=== PATIENT | male | born 1970 | race Caucasian/White ===

== ENCOUNTER 2016-12-16 08:16 | Emergency (ER) | payer OTHER, SELFPAY ==
[2016-12-16 08:17] VITALS: BMI 24.5
[2016-12-16 08:23] VITALS: BP 112/78; PULSE 81; RESP 18; TEMP 98.2; O2SAT 96
[2016-12-16] MEDS ORDERED: guaiFENesin 100 mg/5 ml Syrup UD PO STA (08:35)
--- NOTE | 2016-12-16 08:36 | C.PDOC ---
History Of Present Illness 46 y/o male presents to the ED complaining of non-productive cough, sore throat , and body aches x 3 days. Patient reports taking DayQuil and NyQuil at home. Denies any fever, chills, ear pain, chest pain, shortness of breath, or other complaints. Time Seen by Provider: 12/16/16 08:31 Chief Complaint (Nursing): Flu-like Symptoms History Per: Patient History/Exam Limitations: no limitations Onset/Duration Of Symptoms: Days (3), Gradual, Persistent Current Symptoms Are (Timing): Still Present Location Of Pain: Throat, Diffuse Myalgias Sick Contacts (Context): None Associated Symptoms: Cough Ear Symptoms: Bilateral: None Recent travel outside of the [place]: No Past Medical History Reviewed: Historical Data, Nursing Documentation, Vital Signs Vital Signs: Last Vital Signs Temp 98.2 F 12/16/16 08:20 Pulse 81 12/16/16 08:20 Resp 18 12/16/16 08:20 BP 112/78 12/16/16 08:20 Pulse Ox 96 12/16/16 08:36 - Medical History PMH: No Chronic Diseases Surgical History: No Surg Hx Family History: States: Unknown Family Hx - Social History Hx Tobacco Use: No Hx Alcohol Use: No Hx Substance Use: No - Immunization History Hx Tetanus Toxoid Vaccination: No Hx Influenza Vaccination: No Hx Pneumococcal Vaccination: No Review Of Systems Except As Marked, All Systems Reviewed And Found Negative. Constitutional: Positive for: Other (body aches). Negative for: Fever, Chills ENT: Positive for: Throat Pain. Negative for: Ear Pain Cardiovascular: Negative for: Chest Pain Respiratory: Positive for: Cough. Negative for: Shortness of Breath, Sputum Physical Exam - Physical Exam Appears: Non-toxic, No Acute Distress Skin: Normal Color, Warm, Dry Head: Atraumatic, Normacephalic Eye(s): bilateral: Normal Inspection, PERRL Ear(s): Bilateral: Normal Nose: Normal Oral Mucosa: Moist Throat: Normal, No Erythema, No Exudate Neck: Normal ROM, Supple Chest: Symmetrical Cardiovascular: Rhythm Regular Respiratory: Normal Breath Sounds, No Rales, No Rhonchi, No Wheezing Gastrointestinal/Abdominal: Normal Exam, Soft, No Tenderness Extremity: Normal ROM Neurological/Psych: Oriented x3, Normal Speech, Normal Cognition ED Course And Treatment O2 Sat by Pulse Oximetry: 96 (ra) Pulse Ox Interpretation: Normal Medical Decision Making Medical Decision Making: Plan: * Motrin PO, Robitussin PO viral syndrome, no apparent bacterial infection ok to continue OTC flu/cold meds. Disposition Doctor Will See Patient In The: Office Counseled Patient/Family Regarding: Studies Performed, Diagnosis - Disposition Referrals: [facility] [Outside] Disposition: HOME/ ROUTINE Disposition Time: 08:36 Condition: GOOD Additional Instructions: sigue Dayquil/Nyquil baldemar dirijido. Sigue en la [facility] bal[facility]ar necessario. Instructions: Viral Syndrome (ED) Print Language: MALTESE - Clinical Impression Clinical Impression: Influenza-like illness - Scribe Statement The provider has reviewed the documentation as recorded by the Scribe (Doris Fish) Provider Attestation: All medical record entries made by the Scribe were at my direction and personally dictated by me. I have reviewed the chart and agree that the record accurately reflects my personal performance of the history, physical exam, medical decision making, and the department course for this patient. I have also personally directed, reviewed, and agree with the discharge instructions and disposition.
[2016-12-16] MEDS ORDERED: guaiFENesin 100 mg/5 ml Syrup UD ONE (08:49)
== END 2016-12-16 08:50 | disposition home or self-care (01) ==
LOC: C.ER 08:16
DX: J11.1 Influenza due to unidentified influenza virus with other respiratory manifestations (principal)